=== PATIENT | female | born 1985 | race Caucasian/White ===

== ENCOUNTER 2016-08-31 12:45 | Emergency (ER) | payer OTHER ==
[~2016-08-31] VITALS: Ht 162.6 cm; Wt 97.1 kg
[2016-08-31 12:52] VITALS: BP 151/80
== END 2016-08-31 13:32 | disposition home or self-care (01) ==
LOC: ED 12:45
DX: G43.909 Migraine, unspecified, not intractable, without status migrainosus (principal); R11.2 Nausea with vomiting, unspecified